=== PATIENT | male | born 1985 | race Hispanic/Latino ===

== ENCOUNTER 2016-11-02 15:31 | Inpatient (IN) | payer SELFPAY ==
[2016-11-02] MEDS ORDERED: BENADRYL ONE (15:32)
[2016-11-02] MEDS ORDERED: ATIVAN ONE (15:33)
[2016-11-02] MEDS ORDERED: NACL 0.9% 1000 ML 1,000 ML ONE (15:36)
[2016-11-02] MEDS ORDERED: BENADRYL IV ONE (15:40)
[2016-11-02] MEDS ORDERED: NACL 0.9% 1000 ML 1,000 ML IV ONE ×5 (15:40→19:08)
[2016-11-02] MEDS ORDERED: ATIVAN IV ONE (15:40)
[2016-11-02] MEDS ORDERED: TYLENOL PR ONE ×3 (15:52→16:22)
--- NOTE | 2016-11-02 16:07 | Emergency Department Report ---
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 EMS gave the patient 5 mg of IM Haldol and patient was brought physically restrained to the ER. The patient continued to be agitated physically restrain continued and patient was given 2 mg of Haldol found to have a temperature of 104. Mother stated patient has a history of meth abuse. MD Complaint: altered mental status -: unknown History of same: Yes Quality: constant Treatments Prior to Arrival: placed on mental he, physical restraints, chemical restraints - Related Data Allergies Allergy/AdvReac Type Severity Reaction Status Date / Time Unable to Assess Allergy Unverified 11/02/16 15:43 ED Review of Systems ROS: Stated complaint: METH USE Other details as noted in HPI Comment: Unobtainable due to pts medical conditions ED Past Medical Hx - Past Medical History Previous Medical History?: Yes Hx Psychiatric Treatment: Yes (Per mother report) Additional medical history: LATISHA - Surgical History Additional Surgical History: LATISHA - Social History Smoking Status: Unknown if ever smoked Substance Use Type: Methamphetamines ED Physical Exam - General Limitations: Altered Mental Status General appearance: alert, anxious, other (severly agitated) - Head Head exam: Present: other (abrasion to the forehead) - Eye Eye exam: Present: normal appearance - ENT ENT exam: Present: normal exam, normal orophraynx, mucous membranes dry - Neck Neck exam: Present: normal inspection. Absent: tenderness, meningismus - Respiratory Respiratory exam: Present: normal lung sounds bilaterally, chest wall tenderness. Absent: respiratory distress, wheezes, rales, rhonchi, accessory muscle use, decreased breath sounds, prolonged expiratory - Cardiovascular Cardiovascular Exam: Present: regular rate, normal rhythm, normal heart sounds - GI/Abdominal GI/Abdominal exam: Present: soft, normal bowel sounds. Absent: distended, tenderness, guarding, rebound, rigid, mass, bruit, pulsatile mass - Extremities Exam Extremities exam: Present: normal inspection, normal capillary refill. Absent: full ROM, tenderness - Back Exam Back exam: Present: normal inspection. Absent: CVA tenderness (R), CVA tenderness (L) - Neurological Exam Neurological exam: Present: alert, oriented X3, CN II-XII intact, normal gait, reflexes normal. Absent: motor sensory deficit - Psychiatric Psychiatric exam: Present: agitated, anxious, manic - Skin Skin exam: Present: dry, intact ED Course Vital Signs 11/02/16 11/02/16 11/02/16 15:28 15:34 15:36 Temperature 104 F H Pulse Rate 146 H 161 H Respiratory 55 H 56 H Rate Blood Pressure 121/47 121/47 121/47 Blood Pressure [Left] O2 Sat by Pulse 93 Oximetry 11/02/16 11/02/16 11/02/16 15:46 16:00 16:15 Temperature Pulse Rate 149 H 126 H 115 H Respiratory 54 H 50 H 41 H Rate Blood Pressure 121/47 118/58 127/68 Blood Pressure [Left] O2 Sat by Pulse 96 95 96 Oximetry 11/02/16 11/02/16 11/02/16 16:29 16:30 16:45 Temperature Pulse Rate 110 H 110 H Respiratory 41 H 37 H 35 H Rate Blood Pressure 125/60 123/58 Blood Pressure [Left] O2 Sat by Pulse 96 97 97 Oximetry 11/02/16 11/02/16 11/02/16 17:00 17:15 17:30 Temperature Pulse Rate 104 H 104 H 108 H Respiratory 35 H 30 H 30 H Rate Blood Pressure 117/62 119/55 122/57 Blood Pressure [Left] O2 Sat by Pulse 98 97 99 Oximetry 11/02/16 11/02/16 11/02/16 17:45 18:00 18:08 Temperature 9737 F H Pulse Rate 100 H 112 H 96 H Respiratory 28 H 24 23 Rate Blood Pressure 117/56 127/66 Blood Pressure [Left] O2 Sat by Pulse 98 99 100 Oximetry 11/02/16 11/02/16 11/02/16 18:12 18:16 18:30 Temperature Pulse Rate 94 H 96 H Respiratory 26 H 25 H Rate Blood Pressure 111/57 110/53 Blood Pressure 111/57 [Left] O2 Sat by Pulse 99 99 Oximetry 11/02/16 11/02/16 18:46 18:55 Temperature 96 F L Pulse Rate 94 H Respiratory 24 Rate Blood Pressure 110/53 Blood Pressure [Left] O2 Sat by Pulse 99 Oximetry - Reevaluation(s) Reevaluation #1: 11/02/16 18:23: Patient is sleeping but when he aroused he will try to get off the bed, physical restrain to continue. Reevaluation #2: 11/02/16 19:09 Patient look better slightly agitated when awake. patient three liters of NS and he has one liter of UOP. I will repeat his labs to assess his status. ED Medical Decision Making - Lab Data Result diagrams: 11/02/16 19:08 11/02/16 19:08 - EKG Data -: EKG Interpreted by Me Rate: tachycardia - EKG Data Interpretation: no acute changes - Radiology Data Radiology results: image reviewed interpreted by me: Chest x-ray is unremarkable - Medical Decision Making Discussed with Dr. Mahoney to admit the patient for fluids and antibiotic and sepsis workup. Critical Care Time: Yes Critical care time in (mins) excluding proc time.: 35 Critical care attestation.: If time is entered above; I have spent that time in minutes in the direct care of this critically ill patient, excluding procedure time. ED Disposition Clinical Impression: Acute psychosis, Acute renal failure, Hypernatremia, Hypokalemia Disposition: OP ADMIT IP TO THIS HOSP Is pt being admited?: Yes Condition: Stable Referrals: PRIMARY CARE, [Primary Care Provider] - 3-5 Days
[2016-11-02 16:14] LABS: Urine Drugs of Abuse Note Disclamer
[2016-11-02 16:25] LABS: Basophils % (Auto) 0.2 % (0.0-1.8); Hematocrit 44.1 % (35.5-45.6); Hemoglobin 15.2 gm/dl (11.8-15.2); Mean Corpuscular HGB Conc 35 % (32-34); Mean Corpuscular Hemoglobin 32 pg (28-32); Mean Corpuscular Volume 93 fl (84-94); Platelet Count 225 K/mm3 (140-440); Red Blood Count 4.76 M/mm3 (3.65-5.03); White Blood Count 18.8 K/mm3 (4.5-11.0)
[2016-11-02 16:34] LABS: Bacteria,Urine 2+ /HPF (Negative); Bilirubin,Urine NEG (Negative); Blood,Urine SM (Negative); Ketones,Urine 20 mg/dL (Negative); Leukocyte Esterase,Urine NEG (Negative); Mucus,Urine 3+ /HPF; Nitrite,Urine NEG (Negative); Sperm,Urine 3+ /HPF (NP)
[2016-11-02] MEDS ORDERED: ZOSYN/NS 4.5GM/100ML 4.5 GM/100 ML VIAL IV ONE (16:43)
[2016-11-02 16:47] LABS: Albumin 4.5 g/dL (3.9-5); Albumin/Globulin Ratio 1.5 %; BUN/Creatinine Ratio 12.5; Calcium 8.6 mg/dL (8.4-10.2); Chloride 111.2 mmol/L (98-107); Potassium 4.9 mmol/L (3.6-5.0); Total Protein 7.6 g/dL (6.3-8.2)
[2016-11-02] MEDS ORDERED: NACL 0.9% IV ONE (19:03)
[2016-11-02 19:26] LABS: Hematocrit 39.4 % (35.5-45.6); Hemoglobin 12.9 gm/dl (11.8-15.2); Mean Corpuscular HGB Conc 33 % (32-34); Mean Corpuscular Hemoglobin 31 pg (28-32); Mean Corpuscular Volume 95 fl (84-94); Platelet Count 167 K/mm3 (140-440); Red Blood Count 4.15 M/mm3 (3.65-5.03); Red Cell Distribution Width 13.7 % (13.2-15.2)
[2016-11-02 19:31] LABS: White Blood Count 21.9 K/mm3 (4.5-11.0)
[2016-11-02 19:37] LABS: BUN/Creatinine Ratio 15.62; Calcium 7.1 mg/dL (8.4-10.2); Chloride 116.1 mmol/L (98-107)
[2016-11-02 19:43] LABS: Potassium 2.9 mmol/L (3.6-5.0)
[2016-11-02] MEDS ORDERED: KCL 10MEQ/100ML 10 MEQ/100 ML BAG IV ONE (19:58)
[2016-11-02] MEDS: KCL 10MEQ/100ML 10 MEQ/100 ML BAG IV SCH ×2 (20:05→21:06)
[2016-11-02 20:29] LABS: Blastocytes % (Manual) 0 %
[2016-11-02 20:30] LABS: Diff Status Complete; Platelet Estimate Consistent w Auto; RBC Morphology Normal
[2016-11-03] MEDS ORDERED: MILK OF MAGNESIA PO PRN (02:30)
[2016-11-03] MEDS ORDERED: ZOFRAN IV PRN (02:30)
[2016-11-03] MEDS ORDERED: DULCOLAX PR PRN (02:30)
[2016-11-03] MEDS ORDERED: TYLENOL PO PRN (02:30)
[2016-11-03] MEDS ORDERED: K-DUR PO ONE ×2 (02:32→02:45)
[2016-11-03] MEDS ORDERED: D5/0.45NS 1,000 ML IV SCH (03:00)
[2016-11-03] MEDS: ROCEPHIN/NS 1 GM/50 ML 1 GM/50 ML BAG IV SCH (03:10)
--- NOTE | 2016-11-03 03:54 | History and Physical Report ---
History of Present Illness Date of examination: 11/03/16 Date of admission: 11/03/16 02:30 History of present illness: 31-year-old man with a history of schizophrenia who was brought to the emergency room because police found the patient standing on a bridge, throwing rocks on cars on the highway. He was acting very bizarre, the police went have to remain the patient ran. He was brought to the emergency room for further evaluation. Patient does not recall events leading up to his hospitalization. He states he relapsed on methamphetamine recently Review Of Systems: Constitutional: no weight loss Ears, eyes, nose, mouth and throat: no nasal congestion, no nasal discharge, no sinus pressure, blurry vision, diplopia Neck: No neck pain or rigidity. Cardiovascular: no chest pain, orthopnea, palpitations Respiratory: No shortness of breath, cough Gastrointestinal: abdominal pain, hematochezia Genitourinary : no dysuria, frequency , hematuria Musculoskeletal: no muscle ache Integumentary: no rash, no pruritis Neurological: no parathesias, focal weakness Endocrine: no cold or heat intolerance, no polyuria or polydipsia Hematologic/Lymphatic: no easy bruising, no easy bleeding, no gland swelling Allergic/Immunologic: no urticaria, no angioedema. PAST MEDICAL HISTORY:schizophrenia PAST SURGICAL HISTORY: JAW FAMILY HISTORY: Hypertension SOCIAL HISTORY:Smokes a pack a day, social use, methamphetamine Medications and Allergies Allergies Allergy/AdvReac Type Severity Reaction Status Date / Time Unable to Assess Allergy Unverified 11/02/16 15:43 Home Medications Medication Instructions Recorded Confirmed Last Taken Type Unobtainable 11/02/16 11/02/16 Unknown History Active Meds: Active Medications Acetaminophen (Tylenol) 650 mg PO Q4H PRN PRN Reason: Pain MILD(1-3)/Fever >100.5/FERNANDEZ Bisacodyl (Dulcolax) 10 mg UT QDAY PRN PRN Reason: Constipation unrelieved by MOM Enoxaparin Sodium (Lovenox) 30 mg SUB-Q QDAY LUIGI Ceftriaxone Sodium (Rocephin/Ns 1 Gm/50 Ml) 1 gm in 50 mls @ 100 mls/hr IV Q24H LUIGI Last Admin: 11/03/16 03:10 Dose: 100 mls/hr Dextrose/Sodium Chloride (D5/0.45ns) 1,000 mls @ 100 mls/hr IV DIRECT LUIGI Last Admin: 11/03/16 03:10 Dose: 100 mls/hr Magnesium Hydroxide (Milk Of Magnesia) 30 ml PO Q4H PRN PRN Reason: Constipation Ondansetron HCl (Zofran) 4 mg IV Q8H PRN PRN Reason: N/V unrelieved by Reglan Exam - Physical Exam Narrative exam: Gen. appearance: Patient lying in bed in no acute distress HEENT: Abrasions on the forehead, pupils equal round reactive to light, extra alkaline movement intact, no scleral icterus, no JVD or thyromegaly or nodule, neck is supple, mucous membrane moist, no erythema or exudate Heart: S1-S2, regular rate and rhythm Lungs: Clear to auscultation bilateral breathing comfortable Abdomen: Positive bowel sounds, nontender, nondistended, no organomegaly Extremities: No edema, cyanosis, clubbing Neuro:: Oriented 3 , cranial nerves II-12 intact, speech, motor intact Skin: No rash, nodules, warm dry - Constitutional Vitals: Temp Pulse Resp BP Pulse Ox 97.8 F 74 24 104/53 100 11/02/16 20:30 11/03/16 03:00 11/03/16 03:00 11/03/16 03:00 11/03/16 03:00 Results - Labs CBC & Chem 7: 11/02/16 19:08 11/02/16 19:08 - Imaging and Cardiology EKG: image reviewed Chest x-ray: image reviewed Assessment and Plan Assessment SIRS Hypernatremia Rhabdomyolysis Acute renal failure Plan Admit to medicine Start IV antibiotic, follow cultures Start IV fluids, monitor sodium level, kidney function DVT Prophylaxis Patient is 1013
--- NOTE | 2016-11-03 07:36 | XRay Report ---
Single view chest: History: Fever. Findings: Normal cardiomediastinal silhouette. Trachea is midline. No consolidation, pneumothorax or pleural effusion. Impression: No acute cardiopulmonary findings.
[2016-11-03] MEDS ORDERED: LOVENOX SUB-Q SCH (10:00)
[2016-11-04] MEDS: ROCEPHIN/NS 1 GM/50 ML 1 GM/50 ML BAG IV SCH (03:30)
[2016-11-04 06:00] LABS: Basophils % (Auto) 0.5 % (0.0-1.8); Eosinophils % (Auto) 0.5 % (0.0-4.3); Hematocrit 37.5 % (35.5-45.6); Hemoglobin 12.9 gm/dl (11.8-15.2); Mean Corpuscular HGB Conc 34 % (32-34); Mean Corpuscular Hemoglobin 32 pg (28-32); Mean Corpuscular Volume 93 fl (84-94); Platelet Count 159 K/mm3 (140-440); Red Blood Count 4.06 M/mm3 (3.65-5.03); Red Cell Distribution Width 13.8 % (13.2-15.2); White Blood Count 10.4 K/mm3 (4.5-11.0)
[2016-11-04 06:22] LABS: BUN/Creatinine Ratio 11.66; Blood Urea Nitrogen 7 mg/dL (9-20); Calcium 7.8 mg/dL (8.4-10.2); Carbon Dioxide 22 mmol/L (22-30); Chloride 105.2 mmol/L (98-107); Glucose 107 mg/dL (75-100); Potassium 3.5 mmol/L (3.6-5.0); Sodium 141 mmol/L (137-145)
[2016-11-04 06:31] LABS: Anion Gap 17 mmol/L
[2016-11-04] MEDS: LOVENOX SUB-Q SCH (09:45)
--- NOTE | 2016-11-04 10:37 | Consultation ---
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 Today patient is calm, cooperative, but disorganized during the assessment. He stated that he got into an argument with his girlfriend (Lizandro) and came to [place]. While in [place], he stated that he relapsed on meth and smoked a lot of marijuana for a couple days. He stated that he only remember being in traffic and running from the police when they arrived prior to his admission to [facility]. He denies a hx of mental illness. He did stated that he took medication in group home for "something." During our conversation, he would go from topic to topic and had to be redirected multiple times. Patient is very fidgety during the assessment. He denies SI/HI's, AVH's, and depression. He denies sleep disturbance and a poor appetite. He denies excessive alcohol consumption (etoh) . Medications and Allergies Allergies Allergy/AdvReac Type Severity Reaction Status Date / Time No Known Allergies Allergy Verified 11/03/16 09:53 Home Medications Medication Instructions Recorded Confirmed Last Taken Type No Known Home Medications [No 11/03/16 11/03/16 Unknown History Reported Home Medications] Active Meds: Active Medications Acetaminophen (Tylenol) 650 mg PO Q4H PRN PRN Reason: Pain MILD(1-3)/Fever >100.5/FERNANDEZ Bisacodyl (Dulcolax) 10 mg SD QDAY PRN PRN Reason: Constipation unrelieved by MOM Enoxaparin Sodium (Lovenox) 40 mg SUB-Q QDAY@1000 [facility] Last Admin: 11/04/16 09:45 Dose: 40 mg Ceftriaxone Sodium (Rocephin/Ns 1 Gm/50 Ml) 1 gm in 50 mls @ 100 mls/hr IV Q24H LUIGI Last Admin: 11/04/16 03:30 Dose: 100 mls/hr Dextrose/Sodium Chloride (D5/0.45ns) 1,000 mls @ 100 mls/hr IV DIRECT LUIGI Last Admin: 11/03/16 03:10 Dose: 100 mls/hr Magnesium Hydroxide (Milk Of Magnesia) 30 ml PO Q4H PRN PRN Reason: Constipation Ondansetron HCl (Zofran) 4 mg IV Q8H PRN PRN Reason: N/V unrelieved by Chad Past psychiatric history - Past Medical History Past Medical History: hypertension Past Surgical History: No surgical history - past Psychiatric treatment and history psychiatric treatment history: Patient denies psy hx and a fam psy hx. - Social History Social history: lives with family (11th grade education) Mental Status Exam - Vital signs Last Vital Signs Temp 98.1 F 11/04/16 07:15 Pulse 60 11/04/16 10:33 Resp 17 11/04/16 07:15 BP 113/70 11/04/16 07:15 Pulse Ox 98 11/04/16 07:15 - Exam Narrative exam: MSE: Appearance: calm, cooperative Behavior: regular eye contact Speech: regular rate and tone Mood: "I'm okay" Affect: congruent to mood Thought Process: circumstantial Thought Content: denies SI/HI's and AVH's, disorganized Motor Activity: sitting up in bed, fidgety Cognition: A/O x 3 Insight: variable Judgment: variable Results Result Diagrams: 11/04/16 05:16 11/04/16 05:16 Abnormal lab results 11/04/16 11/04/16 Range/Units 05:16 05:16 [place] % (Auto) 10.0 H (0.0-7.3) % [place] # 1.0 H (0.0-0.8) K/mm3 Potassium 3.5 L D (3.6-5.0) mmol/L BUN 7 L (9-20) mg/dL Creatinine 0.6 L D (0.8-1.5) mg/dL Glucose 107 H (75-100) mg/dL Calcium 7.8 L (8.4-10.2) mg/dL All other labs normal. Assessment and Plan Assessment and plan: Impression: Unspecified Psychosis. Substance Use DO (amphetamines, marijuana). Today patient is calm, cooperative, but disorganized during the assessment. CK 9959. DDx: R/O Schizophrenia, Substance Induced Psychosis Recommendation/Plan: Continue 1013. Gather more collateral to determine proper treatment. Informed the Charge Nurse that patient's CK is elevated.
--- NOTE | 2016-11-04 19:55 | Progress Note ---
Assessment and Plan Assessment and plan: 1. Acute psychosis 2. Schizophrenia 3. Substance abuse 4. Rhabdomyolysis 5. DVT prophylaxis Hospitalist Physical - Constitutional Vitals: Temp Pulse Resp BP Pulse Ox 98.1 F 85 18 123/66 94 11/04/16 19:32 11/04/16 19:32 11/04/16 19:32 11/04/16 19:32 11/04/16 19:32 Results - Labs CBC & Chem 7: 11/04/16 05:16 11/04/16 05:16 Labs: Laboratory Last Values WBC 10.4 K/mm3 (4.5-11.0) 11/04/16 05:16 RBC 4.06 M/mm3 (3.65-5.03) 11/04/16 05:16 Hgb 12.9 gm/dl (11.8-15.2) 11/04/16 05:16 Hct 37.5 % (35.5-45.6) 11/04/16 05:16 MCV 93 fl (84-94) 11/04/16 05:16 MCH 32 pg (28-32) 11/04/16 05:16 MCHC 34 % (32-34) 11/04/16 05:16 RDW 13.8 % (13.2-15.2) 11/04/16 05:16 Plt Count 159 K/mm3 (140-440) 11/04/16 05:16 Lymph % (Auto) 29.6 % (13.4-35.0) 11/04/16 05:16 [place] % (Auto) 10.0 % (0.0-7.3) H 11/04/16 05:16 Eos % (Auto) 0.5 % (0.0-4.3) 11/04/16 05:16 Baso % (Auto) 0.5 % (0.0-1.8) 11/04/16 05:16 Lymph # 3.1 K/mm3 (1.2-5.4) 11/04/16 05:16 [place] # 1.0 K/mm3 (0.0-0.8) H 11/04/16 05:16 Eos # 0.1 K/mm3 (0.0-0.4) 11/04/16 05:16 Baso # 0.1 K/mm3 (0.0-0.1) 11/04/16 05:16 Add Manual Diff Complete 11/02/16 19:08 Total Counted 100 11/02/16 19:08 Seg Neutrophils % 59.4 % (40.0-70.0) 11/04/16 05:16 Seg Neuts % (Manual) 79.0 % (40.0-70.0) H 11/02/16 19:08 Band Neutrophils % 10.0 % 11/02/16 19:08 Lymphocytes % (Manual) 6.0 % (13.4-35.0) L 11/02/16 19:08 Reactive Lymphs % (Man) 0 % 11/02/16 19:08 Monocytes % (Manual) 5.0 % (0.0-7.3) 11/02/16 19:08 Metamyelocytes % 0 % 11/02/16 19:08 Myelocytes % 0 % 11/02/16 19:08 Promyelocytes % 0 % 11/02/16 19:08 Blast Cells % 0 % 11/02/16 19:08 Nucleated RBC % Not Reportable 11/02/16 19:08 Seg Neutrophils # 6.2 K/mm3 (1.8-7.7) 11/04/16 05:16 Seg Neutrophils # Man 17.3 K/mm3 (1.8-7.7) H 11/02/16 19:08 Band Neutrophils # 2.2 K/mm3 11/02/16 19:08 Lymphocytes # (Manual) 1.3 K/mm3 (1.2-5.4) 11/02/16 19:08 Abs React Lymphs (Man) 0.0 K/mm3 11/02/16 19:08 Monocytes # (Manual) 1.1 K/mm3 (0.0-0.8) H 11/02/16 19:08 Eosinophils # (Manual) 0.0 K/mm3 (0.0-0.4) 11/02/16 19:08 Basophils # (Manual) 0.0 K/mm3 (0.0-0.1) 11/02/16 19:08 Metamyelocytes # 0.0 K/mm3 11/02/16 19:08 Myelocytes # 0.0 K/mm3 11/02/16 19:08 Promyelocytes # 0.0 K/mm3 11/02/16 19:08 Blast Cells # 0.0 K/mm3 11/02/16 19:08 WBC Morphology Not Reportable 11/02/16 19:08 Hypersegmented Neuts Not Reportable 11/02/16 19:08 Hyposegmented Neuts Not Reportable 11/02/16 19:08 Hypogranular Neuts Not Reportable 11/02/16 19:08 Smudge Cells Not Reportable 11/02/16 19:08 Toxic Granulation Not Reportable 11/02/16 19:08 Toxic Vacuolation Not Reportable 11/02/16 19:08 Dohle Bodies Not Reportable 11/02/16 19:08 Pelger-Huet Anomaly Not Reportable 11/02/16 19:08 Kanika Rods Not Reportable 11/02/16 19:08 Platelet Estimate Consistent w auto 11/02/16 19:08 Clumped Platelets Not Reportable 11/02/16 19:08 Plt Clumps, EDTA Not Reportable 11/02/16 19:08 Large Platelets Not Reportable 11/02/16 19:08 Giant Platelets Not Reportable 11/02/16 19:08 Platelet Satelliting Not Reportable 11/02/16 19:08 Plt Morphology Comment Not Reportable 11/02/16 19:08 RBC Morphology Normal 11/02/16 19:08 Dimorphic RBCs Not Reportable 11/02/16 19:08 Polychromasia Not Reportable 11/02/16 19:08 Hypochromasia Not Reportable 11/02/16 19:08 Poikilocytosis Not Reportable 11/02/16 19:08 Anisocytosis Not Reportable 11/02/16 19:08 Microcytosis Not Reportable 11/02/16 19:08 Macrocytosis Not Reportable 11/02/16 19:08 Spherocytes Not Reportable 11/02/16 19:08 Pappenheimer Bodies Not Reportable 11/02/16 19:08 Sickle Cells Not Reportable 11/02/16 19:08 Target Cells Not Reportable 11/02/16 19:08 Tear Drop Cells Not Reportable 11/02/16 19:08 Ovalocytes Not Reportable 11/02/16 19:08 Helmet Cells Not Reportable 11/02/16 19:08 Lucas-Monona Bodies Not Reportable 11/02/16 19:08 Curtiss Rings Not Reportable 11/02/16 19:08 [place] Cells Not Reportable 11/02/16 19:08 Bite Cells Not Reportable 11/02/16 19:08 Crenated Cell Not Reportable 11/02/16 19:08 Elliptocytes Not Reportable 11/02/16 19:08 Acanthocytes (Spur) Not Reportable 11/02/16 19:08 Rouleaux Not Reportable 11/02/16 19:08 Hemoglobin C Crystals Not Reportable 11/02/16 19:08 Schistocytes Not Reportable 11/02/16 19:08 Malaria parasites Not Reportable 11/02/16 19:08 Luigi Bodies Not Reportable 11/02/16 19:08 Hem Pathologist Commnt No 11/02/16 19:08 Sodium 141 mmol/L (137-145) D 11/04/16 05:16 Potassium 3.5 mmol/L (3.6-5.0) L D 11/04/16 05:16 Chloride 105.2 mmol/L (98-107) 11/04/16 05:16 Carbon Dioxide 22 mmol/L (22-30) D 11/04/16 05:16 Anion Gap 17 mmol/L 11/04/16 05:16 BUN 7 mg/dL (9-20) L 11/04/16 05:16 Creatinine 0.6 mg/dL (0.8-1.5) L D 11/04/16 05:16 Estimated GFR > 60 ml/min 11/04/16 05:16 BUN/Creatinine Ratio 11.66 % 11/04/16 05:16 Glucose 107 mg/dL (75-100) H 11/04/16 05:16 Lactic Acid 0.80 mmol/L (0.7-2.0) 11/02/16 19:41 Calcium 7.8 mg/dL (8.4-10.2) L 11/04/16 05:16 Total Bilirubin 1.00 mg/dL (0.1-1.2) 11/02/16 15:44 AST 50 units/L (5-40) H 11/02/16 15:44 ALT 27 units/L (7-56) 11/02/16 15:44 Alkaline Phosphatase 75 units/L (35-129) 11/02/16 15:44 Total Creatine Kinase 9959 units/L (55-170) H 11/04/16 05:16 Troponin T 0.016 ng/mL (0.00-0.029) 11/02/16 16:00 Total Protein 7.6 g/dL (6.3-8.2) 11/02/16 15:44 Albumin 4.5 g/dL (3.9-5) 11/02/16 15:44 Albumin/Globulin Ratio 1.5 % 11/02/16 15:44 Urine Color Yellow (Yellow) 11/02/16 Unknown Urine Turbidity Clear (Clear) 11/02/16 Unknown Urine pH 5.0 (5.0-7.0) 11/02/16 Unknown Ur Specific [place] 1.028 (1.003-1.030) 11/02/16 Unknown Urine Protein 100 mg/dl mg/dL (Negative) 11/02/16 Unknown Urine Glucose (UA) Neg mg/dL (Negative) 11/02/16 Unknown Urine Ketones 20 mg/dL (Negative) 11/02/16 Unknown Urine Blood Sm (Negative) 11/02/16 Unknown Urine Nitrite Neg (Negative) 11/02/16 Unknown Urine Bilirubin Neg (Negative) 11/02/16 Unknown Urine Urobilinogen 2.0 mg/dL (<2.0) 11/02/16 Unknown Ur Leukocyte Esterase Neg (Negative) 11/02/16 Unknown Urine WBC (Auto) 7.0 /HPF (0.0-6.0) H 11/02/16 Unknown Urine RBC (Auto) 4.0 /HPF (0.0-6.0) 11/02/16 Unknown U Epithel Cells (Auto) < 1.0 /HPF (0-13.0) 11/02/16 Unknown Urine Bacteria (Auto) 2+ /HPF (Negative) 11/02/16 Unknown Urine Mucus 3+ /HPF 11/02/16 Unknown Urine Sperm 3+ /HPF (INVESTMENT SPECIALIST) 11/02/16 Unknown Salicylates < 0.3 mg/dL (2.8-20.0) L 11/02/16 15:44 Urine Opiates Screen Presumptive negative 11/02/16 15:55 Urine Methadone Screen Presumptive negative 11/02/16 15:55 Acetaminophen < 15.0 ug/mL (10.0-30.0) 11/02/16 15:44 Ur Barbiturates Screen Presumptive negative 11/02/16 15:55 Ur Phencyclidine Scrn Presumptive negative 11/02/16 15:55 Ur Amphetamines Screen Presumptive positive 11/02/16 15:55 U Benzodiazepines Scrn Presumptive negative 11/02/16 15:55 Urine Cocaine Screen Presumptive negative 11/02/16 15:55 U Marijuana (THC) Screen Presumptive positive 11/02/16 15:55 Drugs of Abuse Note Disclamer 11/02/16 15:55 Plasma/Serum Alcohol < 0.01 gm% (0-0.07) 11/02/16 15:44
[2016-11-04] MEDS: NACL 0.9% 1000 ML 1,000 ML IV SCH (21:33)
[2016-11-05] MEDS: ROCEPHIN/NS 1 GM/50 ML 1 GM/50 ML BAG IV SCH (03:30)
[2016-11-05] MEDS: NACL 0.9% 1000 ML 1,000 ML IV SCH (05:57)
[2016-11-05] MEDS: LOVENOX SUB-Q SCH (08:59)
--- NOTE | 2016-11-05 10:05 | Progress Note ---
Subjective - Reason for Consult Consult date: 11/05/16 Reason for consult: Psychiatry Follow-up - Chief Complaint Chief complaint: "I am good today" Patient is 31 years old male brought by EMS and police department with severe agitation after [place] the [place] traffic. Today patient is calm and cooperative during the assessment. He was informed that his CK was elevated and he needed IV fluid. He stated that he is willing to get the necessary treatment that he needs. Per collateral from Bee Weathers his [phone], she stated that the patient does not have a mental health dx. She stated that he use recreational drugs "occasionally." She stated that she will pick him up once he is discharged and they will return to [place], [place]. He denies SI/HI's, AVH's, and depression. Per the staff, patient has been appropriate since being admitted to their unit. Mental Status Exam - Vital signs Last Vital Signs Temp 97.4 F L 11/05/16 07:45 Pulse 76 11/05/16 09:02 Resp 18 11/05/16 07:45 BP 110/68 11/05/16 07:45 Pulse Ox 98 11/05/16 07:43 - Exam Narrative exam: MSE: Appearance: calm, cooperative Behavior: regular eye contact Speech: regular rate and tone Mood: "I feel good" Affect: congruent to mood Thought Process: linear Thought Content: denies SI/HI's and AVH's Motor Activity: sitting up in bed Cognition: A/O x 3 Insight: fair Judgment: fair Assessment and Plan Impression: Unspecified Psychosis. Substance Use DO (amphetamines, marijuana). Today patient is calm and cooperative during the assessment. CK 4094. DDx: R/O Schizophrenia, Substance Induced Psychosis Recommendation/Plan: Rescind 103. Patient given outpatient rehab services for [facility].
[2016-11-05 12:30] VITALS: BP 105/76
--- NOTE | 2016-11-05 20:56 | Progress Note ---
Assessment and Plan Assessment and plan: 1. Acute psychosis 2. Schizophrenia 3. Substance abuse 4. Rhabdomyolysis 5. DVT prophylaxis Hospitalist Physical - Constitutional Vitals: Temp Pulse Resp BP Pulse Ox 97.6 F 64 20 105/76 97 11/05/16 12:23 11/05/16 12:23 11/05/16 12:23 11/05/16 12:23 11/05/16 12:23 Results - Labs CBC & Chem 7: 11/04/16 05:16 11/04/16 05:16 Labs: Laboratory Last Values WBC 10.4 K/mm3 (4.5-11.0) 11/04/16 05:16 RBC 4.06 M/mm3 (3.65-5.03) 11/04/16 05:16 Hgb 12.9 gm/dl (11.8-15.2) 11/04/16 05:16 Hct 37.5 % (35.5-45.6) 11/04/16 05:16 MCV 93 fl (84-94) 11/04/16 05:16 MCH 32 pg (28-32) 11/04/16 05:16 MCHC 34 % (32-34) 11/04/16 05:16 RDW 13.8 % (13.2-15.2) 11/04/16 05:16 Plt Count 159 K/mm3 (140-440) 11/04/16 05:16 Lymph % (Auto) 29.6 % (13.4-35.0) 11/04/16 05:16 [place] % (Auto) 10.0 % (0.0-7.3) H 11/04/16 05:16 Eos % (Auto) 0.5 % (0.0-4.3) 11/04/16 05:16 Baso % (Auto) 0.5 % (0.0-1.8) 11/04/16 05:16 Lymph # 3.1 K/mm3 (1.2-5.4) 11/04/16 05:16 [place] # 1.0 K/mm3 (0.0-0.8) H 11/04/16 05:16 Eos # 0.1 K/mm3 (0.0-0.4) 11/04/16 05:16 Baso # 0.1 K/mm3 (0.0-0.1) 11/04/16 05:16 Add Manual Diff Complete 11/02/16 19:08 Total Counted 100 11/02/16 19:08 Seg Neutrophils % 59.4 % (40.0-70.0) 11/04/16 05:16 Seg Neuts % (Manual) 79.0 % (40.0-70.0) H 11/02/16 19:08 Band Neutrophils % 10.0 % 11/02/16 19:08 Lymphocytes % (Manual) 6.0 % (13.4-35.0) L 11/02/16 19:08 Reactive Lymphs % (Man) 0 % 11/02/16 19:08 Monocytes % (Manual) 5.0 % (0.0-7.3) 11/02/16 19:08 Metamyelocytes % 0 % 11/02/16 19:08 Myelocytes % 0 % 11/02/16 19:08 Promyelocytes % 0 % 11/02/16 19:08 Blast Cells % 0 % 11/02/16 19:08 Nucleated RBC % Not Reportable 11/02/16 19:08 Seg Neutrophils # 6.2 K/mm3 (1.8-7.7) 11/04/16 05:16 Seg Neutrophils # Man 17.3 K/mm3 (1.8-7.7) H 11/02/16 19:08 Band Neutrophils # 2.2 K/mm3 11/02/16 19:08 Lymphocytes # (Manual) 1.3 K/mm3 (1.2-5.4) 11/02/16 19:08 Abs React Lymphs (Man) 0.0 K/mm3 11/02/16 19:08 Monocytes # (Manual) 1.1 K/mm3 (0.0-0.8) H 11/02/16 19:08 Eosinophils # (Manual) 0.0 K/mm3 (0.0-0.4) 11/02/16 19:08 Basophils # (Manual) 0.0 K/mm3 (0.0-0.1) 11/02/16 19:08 Metamyelocytes # 0.0 K/mm3 11/02/16 19:08 Myelocytes # 0.0 K/mm3 11/02/16 19:08 Promyelocytes # 0.0 K/mm3 11/02/16 19:08 Blast Cells # 0.0 K/mm3 11/02/16 19:08 WBC Morphology Not Reportable 11/02/16 19:08 Hypersegmented Neuts Not Reportable 11/02/16 19:08 Hyposegmented Neuts Not Reportable 11/02/16 19:08 Hypogranular Neuts Not Reportable 11/02/16 19:08 Smudge Cells Not Reportable 11/02/16 19:08 Toxic Granulation Not Reportable 11/02/16 19:08 Toxic Vacuolation Not Reportable 11/02/16 19:08 Dohle Bodies Not Reportable 11/02/16 19:08 Pelger-Huet Anomaly Not Reportable 11/02/16 19:08 Kanika Rods Not Reportable 11/02/16 19:08 Platelet Estimate Consistent w auto 11/02/16 19:08 Clumped Platelets Not Reportable 11/02/16 19:08 Plt Clumps, EDTA Not Reportable 11/02/16 19:08 Large Platelets Not Reportable 11/02/16 19:08 Giant Platelets Not Reportable 11/02/16 19:08 Platelet Satelliting Not Reportable 11/02/16 19:08 Plt Morphology Comment Not Reportable 11/02/16 19:08 RBC Morphology Normal 11/02/16 19:08 Dimorphic RBCs Not Reportable 11/02/16 19:08 Polychromasia Not Reportable 11/02/16 19:08 Hypochromasia Not Reportable 11/02/16 19:08 Poikilocytosis Not Reportable 11/02/16 19:08 Anisocytosis Not Reportable 11/02/16 19:08 Microcytosis Not Reportable 11/02/16 19:08 Macrocytosis Not Reportable 11/02/16 19:08 Spherocytes Not Reportable 11/02/16 19:08 Pappenheimer Bodies Not Reportable 11/02/16 19:08 Sickle Cells Not Reportable 11/02/16 19:08 Target Cells Not Reportable 11/02/16 19:08 Tear Drop Cells Not Reportable 11/02/16 19:08 Ovalocytes Not Reportable 11/02/16 19:08 Helmet Cells Not Reportable 11/02/16 19:08 [place] Bodies Not Reportable 11/02/16 19:08 [place] Rings Not Reportable 11/02/16 19:08 [place] Cells Not Reportable 11/02/16 19:08 Bite Cells Not Reportable 11/02/16 19:08 Crenated Cell Not Reportable 11/02/16 19:08 Elliptocytes Not Reportable 11/02/16 19:08 Acanthocytes (Spur) Not Reportable 11/02/16 19:08 Rouleaux Not Reportable 11/02/16 19:08 Hemoglobin C Crystals Not Reportable 11/02/16 19:08 Schistocytes Not Reportable 11/02/16 19:08 Malaria parasites Not Reportable 11/02/16 19:08 [place] Bodies Not Reportable 11/02/16 19:08 Hem Pathologist Commnt No 11/02/16 19:08 Sodium 141 mmol/L (137-145) D 11/04/16 05:16 Potassium 3.5 mmol/L (3.6-5.0) L D 11/04/16 05:16 Chloride 105.2 mmol/L (98-107) 11/04/16 05:16 Carbon Dioxide 22 mmol/L (22-30) D 11/04/16 05:16 Anion Gap 17 mmol/L 11/04/16 05:16 BUN 7 mg/dL (9-20) L 11/04/16 05:16 Creatinine 0.6 mg/dL (0.8-1.5) L D 11/04/16 05:16 Estimated GFR > 60 ml/min 11/04/16 05:16 BUN/Creatinine Ratio 11.66 % 11/04/16 05:16 Glucose 107 mg/dL (75-100) H 11/04/16 05:16 Lactic Acid 0.80 mmol/L (0.7-2.0) 11/02/16 19:41 Calcium 7.8 mg/dL (8.4-10.2) L 11/04/16 05:16 Total Bilirubin 1.00 mg/dL (0.1-1.2) 11/02/16 15:44 AST 50 units/L (5-40) H 11/02/16 15:44 ALT 27 units/L (7-56) 11/02/16 15:44 Alkaline Phosphatase 75 units/L (35-129) 11/02/16 15:44 Total Creatine Kinase 4094 units/L (55-170) H 11/05/16 06:27 Troponin T 0.016 ng/mL (0.00-0.029) 11/02/16 16:00 Total Protein 7.6 g/dL (6.3-8.2) 11/02/16 15:44 Albumin 4.5 g/dL (3.9-5) 11/02/16 15:44 Albumin/Globulin Ratio 1.5 % 11/02/16 15:44 Urine Color Yellow (Yellow) 11/02/16 Unknown Urine Turbidity Clear (Clear) 11/02/16 Unknown Urine pH 5.0 (5.0-7.0) 11/02/16 Unknown Ur Specific [place] 1.028 (1.003-1.030) 11/02/16 Unknown Urine Protein 100 mg/dl mg/dL (Negative) 11/02/16 Unknown Urine Glucose (UA) Neg mg/dL (Negative) 11/02/16 Unknown Urine Ketones 20 mg/dL (Negative) 11/02/16 Unknown Urine Blood Sm (Negative) 11/02/16 Unknown Urine Nitrite Neg (Negative) 11/02/16 Unknown Urine Bilirubin Neg (Negative) 11/02/16 Unknown Urine Urobilinogen 2.0 mg/dL (<2.0) 11/02/16 Unknown Ur Leukocyte Esterase Neg (Negative) 11/02/16 Unknown Urine WBC (Auto) 7.0 /HPF (0.0-6.0) H 11/02/16 Unknown Urine RBC (Auto) 4.0 /HPF (0.0-6.0) 11/02/16 Unknown U Epithel Cells (Auto) < 1.0 /HPF (0-13.0) 11/02/16 Unknown Urine Bacteria (Auto) 2+ /HPF (Negative) 11/02/16 Unknown Urine Mucus 3+ /HPF 11/02/16 Unknown Urine Sperm 3+ /HPF (BEAUTICIAN APPRENTICE) 11/02/16 Unknown Salicylates < 0.3 mg/dL (2.8-20.0) L 11/02/16 15:44 Urine Opiates Screen Presumptive negative 11/02/16 15:55 Urine Methadone Screen Presumptive negative 11/02/16 15:55 Acetaminophen < 15.0 ug/mL (10.0-30.0) 11/02/16 15:44 Ur Barbiturates Screen Presumptive negative 11/02/16 15:55 Ur Phencyclidine Scrn Presumptive negative 11/02/16 15:55 Ur Amphetamines Screen Presumptive positive 11/02/16 15:55 U Benzodiazepines Scrn Presumptive negative 11/02/16 15:55 Urine Cocaine Screen Presumptive negative 11/02/16 15:55 U Marijuana (THC) Screen Presumptive positive 11/02/16 15:55 Drugs of Abuse Note Disclamer 11/02/16 15:55 Plasma/Serum Alcohol < 0.01 gm% (0-0.07) 11/02/16 15:44
[2016-11-05] MEDS ORDERED: NACL 0.9% 1000 ML 1,000 ML IV SCH (21:00)
--- NOTE | 2016-11-06 16:36 | Discharge Summary ---
Providers - Providers Date of Admission: 11/03/16 02:30 Date of discharge: 11/05/16 Attending physician: GREG WELDON CONSULTS: Psychiatry Primary care physician: NARDA ARGUELLO MD Hospitalization Condition: Stable Hospital course: Patient left AMA soon after psychiatry rescinded 1013. Diagnoses: Acute psychosis Substance abuse (amphetamines, marijuana) Acute nontraumatic rhabdomyolysis Disposition: DC-07 LEFT AGAINST MED ADVICE Core Measure Documentation - Palliative Care Palliative Care/ Comfort Measures: Not Applicable - Core Measures Any of the following diagnoses?: none Exam - Constitutional Vitals: Temp Pulse Resp BP Pulse Ox 97.6 F 64 20 105/76 97 11/05/16 12:23 11/05/16 12:23 11/05/16 12:23 11/05/16 12:23 11/05/16 12:23 Plan Follow up with: PRIMARY MD SAUNDRA [Primary Care Provider] - 3-5 Days Forms: AMA Form
== END 2016-11-05 16:00 | disposition left against medical advice (07) | DRG 885 ==
LOC: ED 15:31 → 4A 11-03 02:30
PROVIDERS: ADMIT Internal Medicine; ATTEND Internal Medicine
DX: F20.9 Schizophrenia, unspecified (principal); N17.9 Acute kidney failure, unspecified; E87.0 Hyperosmolality and hypernatremia; M62.82 Rhabdomyolysis; R65.10 Systemic inflammatory response syndrome (SIRS) of non-infectious origin without acute organ dysfunction; E87.6 Hypokalemia; Z82.49 Family history of ischemic heart disease and other diseases of the circulatory system; I10 Essential (primary) hypertension; F15.10 Other stimulant abuse, uncomplicated
CPT/HCPCS: 36415; 71010; 80048; 80053; 80307; 80320; 81001; 82140; 82550; 84484; 85007; 85025; 87040; 93005; 93010; 96361; 96365; 96367; 96375; 99291; G0480; J0696; J1200; J1650; J2060; J2543; J3480; J7030